=== PATIENT | female | born 1945 | race Caucasian/White ===

== ENCOUNTER → 2016-06-14 | Day surgery (SDC) | payer BC ==
[~2016-06-14] MED LIST: PROPOFOL 20 ML ONE
--- NOTE | 2016-06-17 14:18 | PATH ---
Surgical Pathology Report Patient Name: ROBBY PANDYA [facility]. Rec. #: [id number] /Age/Gender: 1945 (Age: 71) / F Account: [id number] Location: [facility] RADI[facility] U Taken: 06/14/2016 Received: 06/14/2016 Reported: 06/17/2016 Physicians: Krishna Coyle M.D. Specimen(s) Received RIGHT BREAST CORE BIOPSY 1 O'CLOCK 3 CMFN Clinical History Nonpalpable lesion, suspicious Final Diagnosis RIGHT BREAST, 1:00 3 CM FROM NIPPLE, NEEDLE CORE BIOPSY: INVASIVE DUCTAL CARCINOMA, WELL TO MODERATELY DIFFERENTIATED, MEASURING 0.4 CM MEASURED ON THE SLIDE. Results of Estrogen Receptor (ER) and Progesterone Receptor (WV) studies performed at [facility] are as follows: ER (clone [id number] mouse monoclonal antibody by [employer]): 100 % nuclear staining with strong intensity (Positive). WV (clone16 mouse monoclonal antibody by Leica) : >95% nuclear staining with moderate to strong intensity (Positive). Positive and negative controls (internal if applicable) show appropriate results. Formalin fixation and cold ischemic times are within current ASCO/CAP recommendations for ER, WV and Her2 testing. Comment: Immunostain stain for smooth muscle myosin heavy chain shows loss of the myoepithelial cell layer in the areas of invasive carcinoma. Assays for HER-2/chad and Ki67 are pending, and a report will follow. This case was discussed with ESTRADA Edwards of Dr. Krishna Coyle's office on June 17, 2016. Electronically Signed Van Hudson M.D. Addendum Reported: 06/18/2016 Addendum Diagnosis Results of Her2 (IHC) & Ki-67 studies performed at [place], [place] ([id number]) are as follows: Her2 IHC (EP3 from [employer], formerly known as [id number], using Chang Polymer Refine detection kit): 1+ Negative Ki-67. ~10% (Low proliferative index) Positive and negative controls (internal if applicable) show appropriate results. Van Hudson M.D. Gross Description Received in formalin, labeled "right breast 1:00, 3cmfn," are 6 wilson-yellow, cylindrical portions of fibroadipose tissue ranging from 1.3-2.0 cm. in length and averaging 0.4 cm. in diameter. The specimen is submitted in toto in one cassette. Time to formalin fixation: Less than one minute Total formalin fixation time: Approximately 8 hours. 06/14/201606/14/2016
--- NOTE | 2016-06-17 21:23 | OP ---
DATE OF OPERATION: 06/14/2016 PREOPERATIVE DIAGNOSIS: Right breast mass, 1 o'clock, 3 cm from the nipple. POSTOPERATIVE DIAGNOSIS: Right breast mass, 1 o'clock, 3 cm from the nipple. PROCEDURE: Right ultrasound-guided core biopsy with bowtie clip placement. ANESTHESIA: Local. ATTENDING SURGEON: Krishna Coyle MD ESTIMATED BLOOD LOSS: Minimal. COMPLICATIONS: None. PROCEDURE: Patient was made aware of the risks and benefits of the procedure and consented. She was placed in the supine position. Under sterile conditions, with 1% lidocaine for local anesthesia, a small rufino was made in the skin. Using a 10-gauge suction biopsy device via lateral approach under ultrasound guidance, multiple cores were obtained and submitted to Pathology. Likewise under ultrasound guidance, a bowtie clip was placed into the biopsy region. Well tolerated by patient. Steri-Strip and sterile bandage was applied. Will contact her with the results. KRISHNA COYLE M.D. [id number]
== END | disposition home or self-care (01) ==
LOC: FRADUS-SUR 12:40
PROVIDERS: ATTEND Surgery Surgical Oncology
PROC: 0HBT3ZX Excision of Right Breast, Percutaneous Approach, Diagnostic (ICD-10-PCS; principal; 2016-06-14)
DX: N63 Unspecified lump in breast (principal); C50.211 Malignant neoplasm of upper-inner quadrant of right female breast
CPT/HCPCS: 19083; 87899; 88305-TC; 88342-TC; A4648

== ENCOUNTER 2016-08-13 07:06 | Day surgery (SDC) | payer BC ==
[2016-08-05 10:45] VITALS: BMI 25.4
--- NOTE | 2016-08-07 15:59 | HP ---
Admitting History and Physical - Primary Care Physician PCP: Vanna Yuan - Admission Chief Complaint: Right breast cancer History of Present Illness: 71 year old postmenapausal female with routine mammogram showing dense tissue. US showed stable left breast mass 9:00 and new right breast mass .4 cm at 1:00. US core biopsy right breast showed invasive ductal carcinoma. History Source: Patient Limitations to Obtaining History: No Limitations - Past Medical History ...: No Endocrine: Yes: Hypothyroidism Additional Past Medical History: mild glaucoma - Past Surgical History Past Surgical History: Yes: Tonsillectomy Additional Past Surgical History: Right meniscal tear 2011 - Smoking History Smoking history: Former smoker Have you smoked in the past 12 months: No If you are a former smoker, when did you quit?: 1966 - Alcohol/Substance Use Hx Alcohol Use: Yes (1-1.5 GLASSSES WINE DAILY) Home Medications - Allergies Allergies/Adverse Reactions: Allergies Allergy/AdvReac Type Severity Reaction Status Date / Time levofloxacin [From Levaquin] Allergy Severe KIDNEY Verified 08/05/16 10:46 PAIN, DECREASED URINATION - Home Medications Home Medications: Ambulatory Orders Levothyroxine [Synthroid -] 100 mcg PO DAILY 08/05/16 Timolol 0.25% [Timoptic 0.25%] 1 drop OU DAILY 08/05/16 Family Disease History - Family Disease History Family Disease History: CA: Father (hairy cell leukemia), Mother (breast and lung ca 83), Brother (prostate ca 58) Physical Examination Constitutional: Yes: Well Nourished Breast(s): Yes: Other (No palpable masses or adenopathy bilaterally post biopsy changes right breast) Problem List - Problems (1) Breast cancer, right breast Code(s): C50.911 - MALIGNANT NEOPLASM OF UNSP SITE OF RIGHT FEMALE BREAST Qualifiers: Breast location: upper inner quadrant of breast Patient sex: female Assessment/Plan Right breast wide excision mammogram needle localization, lymphoscintogram sentenel node biopsy ,possible axillary node dissection intra op radiation
[2016-08-13] MEDS ORDERED: KETOROLAC TROMETHAMINE 30 MG/1 ML VIAL IVPUSH PRN (10:51)
[2016-08-13] MEDS ORDERED: ONDANSETRON 4 MG/2 ML VIAL IVPB PRN (10:51)
[2016-08-13] MEDS ORDERED: MIDAZOLAM HCL 2 MG/2 ML SINGLE DOSE VIAL ONE (10:58)
[2016-08-13] MEDS ORDERED: DEXTROSE 5%-0.45% SALINE 1,000 ML IV SCH (11:00)
[2016-08-13] MEDS ORDERED: ISOSULFAN BLUE 10 MG/ML VIAL SQ ONE (11:04)
[2016-08-13] MEDS ORDERED: LIDOCAINE 1%-EPI 1:100,000 30 ML MDV IJ ONE (11:04)
[2016-08-13] MEDS ORDERED: LIDOCAINE HCL 1%, 10 MG/ML (20ML VIAL) ONE (11:04)
[2016-08-13] MEDS ORDERED: BUPIVACAINE HCL/PF 0.5% (5MG/ML) 10 ML VIAL ONE (12:56)
[2016-08-13] MEDS ORDERED: BUPIVACAINE HCL/PF 0.5% (5MG/ML) 10 ML VIAL IJ ONE ×2 (13:04)
[2016-08-13] MEDS ORDERED: KETOROLAC TROMETHAMINE 30 MG/1 ML VIAL ONE (14:05)
[2016-08-13] MEDS ORDERED: ONDANSETRON 4 MG/2 ML VIAL ONE (14:05)
[2016-08-13 15:14] VITALS: TEMP 97.5
[2016-08-13 17:27] VITALS: BP 112/73; PULSE 68
[2016-08-14] MEDS ORDERED: LEVOTHYROXINE NA 100 MCG TABLET (FP) PO SCH (07:00)
[2016-08-14] MEDS ORDERED: TIMOLOL 0.25% OPHTHALMIC SOL 5 ML BOTTLE OU SCH (10:00)
--- NOTE | 2016-08-14 14:21 | OP ---
DATE OF OPERATION: 08/13/2016 PREOPERATIVE DIAGNOSIS: Left upper inner quadrant breast cancer. POSTOPERATIVE DIAGNOSIS: Left upper inner quadrant breast cancer. PROCEDURE: Left partial mastectomy, sentinel node biopsy. SURGEON: Vanna Yuan MD BINDING DYER: ESTRADA Muñoz ANESTHESIA: General. ANESTHESIOLOGIST: SPECIMENS: 1. Marble node. 2. Partial mastectomy. 3-8. Additional margins. DRAINS: None. ESTIMATED BLOOD LOSS: Minimal. INDICATIONS FOR PROCEDURE: The patient is a 71-year-old white female of Chinese ancestry. Routine screening mammogram in April,, showed dense breasts. Ultrasound showed a stable mass in the left breast at 8-9 o'clock and a new 0.4- cm mass in the right breast at 1 o'clock. Biopsy on June 14, 2016, showed an invasive, moderately differentiated cancer. The cancer is ER/KY positive and KI-67 is 10% . After discussion of options, she decided on breast conservation with partial mastectomy and sentinel node biopsy. She was offered participation in the TARGIT-US trial, but declined. DESCRIPTION OF PROCEDURE: The patient was taken to nuclear medicine, where she underwent a lymphoscintigraphy. She was then taken to breast imaging where she underwent localization of the clip in the left upper inner breast. She was taken to the ambulatory surgical area where informed consent was obtained, and the left breast was identified with a marker. She was taken to the operating room and placed on the operating table in the supine position. Sequential compression devices were placed on both legs. She received antibiotics prior to surgery. General anesthesia was initiated. The left breast was injected with isosulfan blue. The breast was massaged for 5 minutes. The left breast and axilla were then prepped and draped in the usual fashion. A time-out was performed. The sentinel node biopsy was performed first. The axilla was examined with the navigator probe, and high counts were identified in the axilla. An incision was made at this region with a scalpel and deepened using electrocautery until the axillary fat pad was encountered. Dissection in this region revealed a blue node. The node was grasped with a clamp and from the axillary fat using electrocautery. It was sent to Pathology in formalin for further evaluation. Some fatty tissue which was removed was also sent as a specimen. Once hemostasis was achieved in the axilla, attention was turned to the partial mastectomy. There was a localizing wire exiting the upper breast. An incision was made at the upper border of the areola. It was deepened using electrocautery until the breast parenchyma was encountered. The tip of the needle could be felt at around the 12 o'clock position. Electrocautery was used to mobilize the tissue around the needle and separate it from the breast. Once the specimen was from the breast parenchyma, the wire was disassembled and brought into the operative field. The specimen was labeled with silk sutures with a long stitch for the lateral margin and a short stitch for the superior margin. The specimen was removed, and a specimen radiograph showed that the specimen was all included. The specimen was then placed in formalin and sent to Pathology for permanent section. Additional margins were then removed. Slivers of tissue were removed from the superior, inferior, medial, lateral, anterior, and deep regions of the biopsy cavity. These were all labeled with a stitch at the biopsy cavity side. They were all placed in formalin and sent to Pathology for further evaluation. The wound was irrigated and inspected for hemostasis. Once hemostasis was satisfactory, the breast incision was closed using interrupted sutures of 3-0 Vicryl for the dermis and a running subcuticular closure of 4-0 Monocryl for the skin. The left axillary incision was also closed in a similar fashion using interrupted sutures of 3-0 Vicryl for the dermis and a running subcuticular closure of 4-0 Monocryl for the skin. The patient tolerated the procedure well. At the end of the procedure, all sponge, lap, and instrument counts were correct. She was extubated and taken to the recovery room in satisfactory condition. Amber [id number] MTDD
--- NOTE | 2016-08-19 11:08 | PATH ---
Surgical Pathology Report Patient Name: ROBBY PANDYA [facility]. Rec. #: [id number] /Age/Gender: 1945 (Age: 71) / F Account: [id number] Location: [facility] AMBUL[facility] Taken: 08/13/2016 Received: 08/13/2016 Reported: 08/19/2016 Physicians: Vanna Yuan M.D. Specimen(s) Received A: RIGHT AXILLARY FAT B: RIGHT BREAST SENTINEL NODE C: RIGHT BREAST WIDE EXCISION D: RIGHT BREAST DEEP MARGIN E: RIGHT BREAST SUPERIOR MARGIN F: RIGHT BREAST MEDIAL MARGIN G: RIGHT BREAST INFERIOR MARGIN H: RIGHT BREAST LATERAL MARGIN I: RIGHT BREAST ANTERIOR MARGIN Clinical History Right breast CA Final Diagnosis A. AXILLARY FAT, RIGHT, EXCISION: FIBROADIPOSE TISSUE WITH NO PATHOLOGIC FINDINGS. B. SENTINEL LYMPH NODE, RIGHT BREAST, EXCISION: ONE LYMPH NODE, NEGATIVE FOR METASTATIC CARCINOMA (0/1). C. BREAST, RIGHT, WIDE EXCISION: INVASIVE DUCTAL CARCINOMA, WELL DIFFERENTIATED (TUBULE SCORE: 2/3; NUCLEAR GRADE: 2/3; MITOTIC SCORE: 1/3; TOTAL AMY SCORE: 5/9), MEASURING 9 MM IN GREATEST DIMENSION, MICROSCOPICALLY. DUCTAL CARCINOMA IN SITU (DCIS), CRIBRIFORM AND FLAT TYPE, INTERMEDIATE NUCLEAR GRADE IS PRESENT ADMIXED WITH INVASIVE CARCINOMA A MINOR COMPONENT. SURGICAL MARGINS ARE UNINVOLVED BY CARCINOMA; INVASIVE CARCINOMA IS AT 2 MM FROM THE CLOSEST (INFERIOR) MARGIN AND DCIS IS AT 1 MM FROM THE CLOSEST (INFERIOR) MARGIN. (SEE SPECIMENS D-I FOR FINAL MARGINS). NO LYMPHOVASCULAR INVASION IS IDENTIFIED. FEW FOCI OF LOBULAR CARCINOMA IN SITU (LCIS), CLASSICAL TYPE. PRIOR BIOPSY SITE CHANGES ARE PRESENT. PATHOLOGIC STAGE (pTNM):pT1b pN0. SEE ALSO INVASIVE CARCINOMA CASE SUMMARY BELOW. D. BREAST, RIGHT, DEEP MARGIN, EXCISION: BENIGN BREAST TISSUE. E. BREAST, RIGHT, SUPERIOR MARGIN, EXCISION: BENIGN BREAST TISSUE. F. BREAST, RIGHT, MEDIAL MARGIN, EXCISION: BENIGN BREAST TISSUE. G. BREAST, RIGHT, INFERIOR MARGIN, EXCISION: BENIGN BREAST TISSUE. H. BREAST, RIGHT, LATERAL MARGIN, EXCISION: BENIGN BREAST TISSUE SHOWING NODULAR ADENOSIS. I. BREAST, RIGHT, ANTERIOR MARGIN, EXCISION: BENIGN FIBROADIPOSE TISSUE. Comments Breast Invasive Carcinoma: Surgical Pathology Cancer Case Summary Based on AJCC/UICC TNM, 7th edition Procedure _X_ Excision with image-guided localization Lymph Node Sampling _X_ [place] lymph node(s) Specimen Laterality _X_ Right Tumor Size: Size of Largest Invasive Carcinoma: 9 mm Tumor Focality _X_ Single focus of invasive carcinoma Macroscopic and Microscopic Extent of Tumor Nipple _X_ Not applicable (excisions less than total mastectomy) Ductal Carcinoma In Situ (DCIS) _X_ DCIS is present _X_ as a minor component (< 25% of tumor) Histologic Type of Invasive Carcinoma : _X_ Invasive carcinoma of no special type (ductal, not otherwise specified) Histologic Grade: ([place] Histologic Score) Tubular Differentiation _X_ Score 2 Nuclear Pleomorphism _X_ Score 2 Mitotic Rate _X_ Score 1 Overall Grade _X_ Grade 1: scores of 3, 4, or 5 (well differentiated) Margins _X_ Margins uninvolved by invasive carcinoma Distance from closest margin: 2 mm from inferior margin in wide excision C. Final inferior margin G is negative for carcinoma. _X_ Margins uninvolved by DCIS Distance from closest margin: 1 mm from inferior margin in wide excision C. Final inferior margin G is negative for DCIS. Lymph-Vascular Invasion _X_ Not identified Lymph Nodes Total number of lymph nodes examined (sentinel and nonsentinel): 1 Number of sentinel lymph nodes examined: 1 Number of lymph nodes with macrometastases ( > 2 mm): 0 Number of lymph nodes with micrometastases (>0.2 mm to 2 mm and/or >200cells):0 Number of lymph nodes with isolated tumor cells (=0.2 mm and =200 cells): 0 Extranodal Extension _X_ Not applicable Pathologic Staging (pTNM) Primary Tumor (Invasive Carcinoma): pT1b Regional Lymph Nodes (pN): pN0 Biomarker Studies Results of ER and IL studies performed on prior biopsy ([id number]) at [facility] are as follows: ER (clone [id number] mouse monoclonal antibody by [employer]): 100 % nuclear staining with strong intensity (Positive). IL (clone16 mouse monoclonal antibody by [employer]): >95 % nuclear staining with moderate to strong intensity (Positive). Results of Her2 (IHC) & Ki-67 studies performed on prior biopsy ( [id number]) at [place], [place] ( [id number]) are as follows: Her2 IHC (EP3 from [employer], formerly known as [id number], using Chang Polymer Refine detection kit): 1+ (Negative). Ki67: ~10% (Low). Electronically Signed Dyan Hendrix M.D. Gross Description A. Received in formalin labeled "right axillary fat," is a 2.5 x 1.7 x 0.3 cm aggregate of yellow, lobulated adipose tissue. The specimen is entirely submitted in one cassette. B. Received in formalin labeled "right breast sentinel node," is a 1.2 x 0.6 x 0.6 cm wilson, irregular lymph node with attached fat. The specimen is bisected and entirely submitted in 2 cassettes. C. Received in formalin, labeled "right breast wide excision," is a 5.8 x 3.3 x 3.0 cm. wilson-yellow, irregular, portion of fibroadipose tissue with a needle localization wire present. There is a short suture marking the superior aspect and a long suture marking the lateral aspect, per the surgeon. There is no skin present. The specimen is inked as follows: superior blue; anterior and medial red; lateral yellow; inferior green; deep black. The specimen is serially sectioned from anterior to deep. Sectioning reveals a 1.2 x 1.0 x 1.0 cm wilson, firm, ill-defined mass at 0.3 cm from the superior margin, 0.5 cm from the inferior margin and 0.6 cm from the medial margin. The remaining margins appear widely clear of the mass. Records Management Associate sections are submitted in 8 cassettes as follows: 1-2-one full-face section of mass each, with superior and inferior margins; 7-8-picqlingyi mass with superior, inferior and medial margins; 6-lateral margin; 7-anterior margin; 8-deep margin. Time to formalin fixation: 2 minutes Total formalin fixation time: Approximately 30 hours. D. Received in formalin labeled "right breast deep margin," is a 1.5 x 1.3 x 0.5 cm irregular portion of fibroadipose tissue with a suture marking the biopsy cavity side, per the surgeon. The new margin is inked blue and the specimen is serially sectioned. The specimen is entirely submitted in 2 cassettes. E. Received in formalin labeled "right breast superior margin," is a 2.0 x 0.8 x 0.4 cm irregular portion of fibroadipose tissue with a suture marking the biopsy cavity side, per the surgeon. The new margin is inked blue and the specimen is serially sectioned. The specimen is entirely submitted in 2 cassettes. F. Received in formalin labeled "right breast medial margin," is a 1.8 x 1.4 x 0.3 cm irregular portion of fibroadipose tissue with a suture marking the biopsy cavity side, per the surgeon. The new margin is inked blue and the specimen is serially sectioned. The specimen is entirely submitted in 2 cassettes. G. Received in formalin labeled "right breast inferior margin," is a 2.2 x 1.6 x 0.5 cm irregular portion of fibroadipose tissue with a suture marking the biopsy cavity side, per the surgeon. The new margin is inked blue and the specimen is serially sectioned. The specimen is entirely submitted in 2 cassettes. H. Received in formalin labeled "right breast lateral margin," is a 1.5 x 1.4 x 0.6 cm irregular portion of fibroadipose tissue with a suture marking the biopsy cavity side, per the surgeon. The new margin is inked blue and the specimen is serially sectioned. The specimen is entirely submitted in 2 cassettes. I. Received in formalin labeled "right breast anterior margin," is a 1.8 x 0.8 x 0.5 cm irregular portion of fibroadipose tissue with a suture marking the biopsy cavity side, per the surgeon. The new margin is inked blue and the specimen is serially sectioned. The specimen is entirely submitted in 2 cassettes. 08/14/2016 [facility]08/14/2016
== END 2016-08-13 17:15 | disposition home or self-care (01) ==
LOC: FASU 07:06
PROVIDERS: ATTEND Surgery
PROC: 0HBU0ZZ Excision of Left Breast, Open Approach (ICD-10-PCS; principal; 2016-08-13 11:55)
DX: C50.212 Malignant neoplasm of upper-inner quadrant of left female breast (principal); E03.9 Hypothyroidism, unspecified; Z87.891 Personal history of nicotine dependence
CPT/HCPCS: 19281; 78195-TC; 88302-TC; 88307-TC; 94760; A9541

== ENCOUNTER 2017-04-11 09:10 | Day surgery (SDC) | payer BC ==
[2017-04-10 08:49] VITALS: BMI 26.6
[2017-04-11] MEDS ORDERED: VASOPRESSIN 20 UNITS/ML VIAL IV ONE (11:37)
[2017-04-11] MEDS ORDERED: PROPOFOL 20 ML ONE (11:48)
[2017-04-11] MEDS ORDERED: MIDAZOLAM HCL 2 MG/2 ML SINGLE DOSE VIAL ONE (11:48)
[2017-04-11] MEDS ORDERED: ceFAZolin SODIUM 1 GM VIAL ONE (11:48)
[2017-04-11] MEDS ORDERED: ceFAZolin SODIUM 1 GM VIAL IVPB ONE (12:03)
[2017-04-11] MEDS ORDERED: DEXAMETHASONE SOD PHOSPHATE 4 MG/1 ML VIAL ONE (12:21)
[2017-04-11] MEDS ORDERED: KETOROLAC TROMETHAMINE 30 MG/1 ML VIAL ONE (12:41)
[2017-04-11] MEDS ORDERED: CEFAZOLIN 2 GM/D5W 2 GM/50 ML ML IVPB ONE (13:00)
[2017-04-11] MEDS ORDERED: [UNRECOGNIZED DRUG - REMARK] PO PRN (13:17)
[2017-04-11] MEDS ORDERED: IBUPROFEN 200 MG TABLET PO PRN (13:17)
[2017-04-11] MEDS ORDERED: ACETAMINOPHEN INJECTION 100 ML IVPB ONE (13:18)
[2017-04-11] MEDS ORDERED: ACETAMINOPHEN 1000 MG/100 ML VIAL (NON FORMULARY) IVPB PRN (13:22)
[2017-04-11] MEDS ORDERED: ONDANSETRON 4 MG/2 ML VIAL IVPUSH PRN (13:22)
[2017-04-11] MEDS ORDERED: LACTATED RINGERS SOLUTION 1,000 ML IV SCH (13:30)
--- NOTE | 2017-04-11 13:54 | OP ---
Operative Note - Note: Operative Date: 04/11/17 Pre-Operative Diagnosis: prolaspse, cytocele,rectocele Operation: transvaginal hysterectomy, bilateral salpingooperectomy, anterior/ posterior colporraphy Surgeon: Jeremy Alcantara Airborne Electronics Analyst: Nu Domingo Anesthesiologist/LAB COURIER: Yessenia Beltrán Anesthesia: General Specimens Removed: b/l ovaries/fallopian tubes, uterus Estimated Blood Loss (mls): 30 Fluid Volume Replaced (mls): 1,000 Operative Report Dictated: Yes
--- NOTE | 2017-04-11 13:56 | SURG ---
Surgery Case Management Assistant Note Case Management Assistant: Nu Domingo PA-C Date of Service: 04/11/17 Diagnosis: prolaspse, cytocele,rectocele Procedure: transvaginal hysterectomy, bilateral salpingooperectomy, anterior/posterior colporraphy I was present for the entirety of the operative procedure. For further detail, please refer to operative report. Visit type - Case Type Case Type: Scheduled Admission - Emergency Emergency Visit: No - New patient This patient is new to me today: Yes Date on this admission: 04/11/17
[2017-04-11] MEDS: oxyCODONE HCL 5 MG TABLET PO PRN ×2 (16:56→19:54)
[2017-04-11] MEDS: ACETAMINOPHEN 325 MG TABLET (FP) PO PRN ×2 (16:57→19:55)
[2017-04-12] MEDS: ACETAMINOPHEN 325 MG TABLET (FP) PO PRN ×3 (01:06→10:01)
[2017-04-12] MEDS: oxyCODONE HCL 5 MG TABLET PO PRN ×3 (01:06→10:01)
[2017-04-12] MEDS ORDERED: LEVOTHYROXINE NA 100 MCG TABLET (FP) PO SCH (07:00)
[2017-04-12] MEDS ORDERED: TAMOXIFEN CITRATE 10 MG TABLET PO SCH (10:00)
[2017-04-12] MEDS ORDERED: TIMOLOL 0.5% OPHTHALMIC SOL 5 ML BOTTLE OU SCH (10:00)
--- NOTE | 2017-04-12 12:21 | OP ---
DATE OF OPERATION: DATE OF DICTATION: 04/11/2017 PREOPERATIVE DIAGNOSIS: Complete uterovaginal prolapse, enterocele, cystocele, and rectocele. PROCEDURE PERFORMED: Vaginal hysterectomy with bilateral salpingo-oophorectomy and enterocele repair, uterosacral cardinal ligament suspension procedure, anterior/posterior colporrhaphy, Jeni plication, and cystoscopy. PRIMARY SURGEON: Jeremy Alcantara MD DESCRIPTION OF PROCEDURE: After adequate anesthesia, the patient was prepped and draped in the dorsal lithotomy position. Circumferential incisions were made on the cervix. Anterior and posterior cul-de-sacs were entered without any difficulty. The uterosacral cardinal ligament complex, followed by the uterine artery, followed by ovarian ligament was clamped, cut, and suture ligated. Uterus was removed. Ovaries and tubes were identified and removed without any difficulty. The enterocele sac was closed off at its neck using 0 Vicryl suture in a circumferential stitch incorporating the lateral uterosacral cardinal ligament with suspension stitch until modified Waters culdoplasty. Once this was completed, the vaginal vault was closed using 2-0 Vicryl suture in continuous fashion. Vertical incision was made over the anterior vagina wall. Perivesical fascia dissected away, plicated on to itself using 2-0 Vicryl suture in interrupted fashion. The bladder neck was then identified and a Jeni stitch placed. The anterior vaginal wall was closed using 2-0 Vicryl suture in continuous fashion. Vertical incision was made over the back wall of the vagina. Perirectal fascia dissected away, plicated onto itself using 2-0 Vicryl suture in interrupted fashion. The back wall of the vagina was then closed using 2-0 Vicryl suture in continuous fashion. Rectal examination was negative for any foreign bodies. Cystoscopy was performed. No foreign bodies in the bladder and methylene blue emanating from both ureteral orifices after IV injection. Amber [id number]
[2017-04-12 14:05] VITALS: BP 100/50; PULSE 73; TEMP 98.9
--- NOTE | 2017-04-18 09:28 | PATH ---
Surgical Pathology Report Patient Name: ROBBY PANDYA [facility]. Rec. #: [id number] /Age/Gender: 1945 (Age: 72) / F Account: [id number] Location: AMBULATORY SURG Taken: 04/11/2017 Received: 04/11/2017 Reported: 04/18/2017 Physicians: Jeremy Alcantara M.D. Specimen(s) Received A: UTERUS AND CERVIX B: LEFT FALLOPIAN TUBE AND OVARY C: RIGHT FALLOPIAN TUBE AND OVARY Clinical History Uterine prolapse, rectocele Final Diagnosis A. UTERUS, CERVIX, TOTAL VAGINAL HYSTERECTOMY: 146 G UTERUS WITH ATROPHIC ENDOMETRIUM. UNREMARKABLE MYOMETRIUM AND SEROSA. MILD CHRONIC CERVICITIS. B. OVARY AND FALLOPIAN TUBE, LEFT, SALPINGO-OOPHORECTOMY: OVARY AND FALLOPIAN TUBE WITHOUT SIGNIFICANT PATHOLOGIC FINDINGS. C. OVARY AND FALLOPIAN TUBE, RIGHT, SALPINGO-OOPHORECTOMY: OVARY WITHOUT SIGNIFICANT PATHOLOGIC FINDINGS. FALLOPIAN TUBE WITH PARATUBAL CYSTS. Electronically Signed Audra Wilkes M.D. Gross Description A. Received in formalin labeled "uterus, cervix," is a 146 g uterus with an attached cervix and no attached adnexa. The specimen measures 9.8 cm from superior to inferior, 5.5 cm from left to right and 4.2 cm from anterior to posterior. The serosa is wilson-shetty and smooth. The ectocervix is wilson, smooth and glistening. The endocervix displays abundant nabothian cysts. The endometrial cavity measures 4.2 cm in length and 3.4 cm from cornu to cornu. The endometrium is wilson-brown and averages 0.2 cm in thickness. The myometrium is wilson and trabeculated, measuring up to 2.2 cm in thickness. No intramural nodules are identified. Keying Machine Operator sections are submitted in 6 cassettes as follows: 1-anterior cervix; 2-posterior cervix; 9-6-jceldvxi endomyometrium; 8-9-jmwolgqzk endomyometrium. B. Received in formalin labeled "left fallopian tube and ovary," is a 2.5 cm in length fimbriated fallopian tube. The outer surface is wilson crooks and smooth. Sectioning reveals an unremarkable lumen. Separately received within the same container is a 1.8 x 0.9 x 0.6 cm ovary. The outer surface is wilson and smooth. Sectioning reveals unremarkable wilson parenchyma. Keying Machine Operator sections are submitted in 3 cassettes as follows: 1-fallopian tube fimbria; 2-cross sections of fallopian tube; 3-entirely submitted ovary. C. Received in formalin labeled "right fallopian tube and ovary," is a 4.5 cm in length fimbriated fallopian tube. The outer surface is wilson crooks with multiple small paratubal cysts attached. Sectioning reveals an unremarkable lumen. Separately received within the same container is a 2.5 x 0.8 x 0.7 cm ovary. The outer surface is wilson and smooth. Sectioning reveals unremarkable wilson parenchyma. Keying Machine Operator sections are submitted in 3 cassettes as follows: 1-fimbria; 2-cross sections of fallopian tube; 3-architectural representative ovary. 04/12/2017 [facility]04/12/2017
== END 2017-04-12 14:00 | disposition home or self-care (01) ==
LOC: JASUSAT 09:10 → J3W 15:37 → JASUSAT 04-12 14:00
PROVIDERS: ATTEND Obstetrics & Gynecology Female Pelvic Medicine and Reconstructive Surgery
PROC: 0UQF0ZZ Repair Cul-de-sac, Open Approach (ICD-10-PCS; 2017-04-11)
PROC: 0JQC0ZZ Repair Pelvic Region Subcutaneous Tissue and Fascia, Open Approach (ICD-10-PCS; 2017-04-11)
PROC: 0JQC0ZZ Repair Pelvic Region Subcutaneous Tissue and Fascia, Open Approach (ICD-10-PCS; principal; 2017-04-11 11:00)
PROC: 0USG0ZZ Reposition Vagina, Open Approach (ICD-10-PCS; 2017-04-11 11:00)
DX: N81.4 Uterovaginal prolapse, unspecified (principal)
CPT/HCPCS: 86850; 86900; 86901; 88305-TC; 94760